=== PATIENT | female | born 1970 | race Hispanic/Latino ===

== ENCOUNTER 2025-08-31 12:58 | Emergency (ER) | payer BC ==
[~2025-08-31 12:58] MED LIST: Iopamidol 370 76% 100 ML VIAL ONE
[2025-08-31] MEDS ORDERED: Ketorolac Tromethamine 30 MG (1 mL) VIAL ONE (13:27)
[2025-08-31] MEDS ORDERED: Ondansetron PF 4 MG/2 ML Vial ONE (13:27)
[2025-08-31] MEDS ORDERED: HYDROmorphone 0.5 MG/0.5 ML SYRINGE ONE (13:28)
[2025-08-31 13:38] LABS: Hematocrit 45.0 % (36.0-47.0); Hemoglobin 14.5 g/dL (12.0-16.0); Mean Corpuscular Hemoglobin 28.2 pg (27.0-31.0); Mean Corpuscular Volume 87.4 fl (78.0-98.0); Platelet Count 234 10x3/uL (130-400); Red Blood Cell (RBC) Count 5.14 mill/uL (4.20-5.40); White Blood Cell (WBC) Count 17.6 10x3/uL (4.8-10.8)
[2025-08-31 13:45] LABS: MDiff Complete? YES; Manual Diff?? YES; Platelet Adequacy Comment Appears Adequate
[2025-08-31 13:47] LABS: ALT (SGPT) 265 U/L (Less than 34); AST (SGOT) 342 U/L (11-34); Albumin 4.2 g/dL (3.1-4.5); Alkaline Phosphatase 397 U/L (40-110); Anion Gap 19 mmol/L (10-20); BUN (Urea Nitrogen) 15 mg/dL (9.8-20.1); Bilirubin, Total 3.1 mg/dL (0.3-1.2); Calc. Creatinine Clearance 0 mL/min (70-130); Calcium 9.6 mg/dL (7.8-10.44); Carbon Dioxide 20 mmol/L (22-29); Chloride 104 mmol/L (98-107); Globulin 4.0 g/dL (2.4-3.5); Glucose 190 mg/dL (70-105); Lipase 12 U/L (8-78); Potassium 3.9 mmol/L (3.5-5.1); Sodium 139 mmol/L (136-145)
[2025-08-31 15:05] LABS: Glucose, Urine (Dipstick) 500 mg/dL (Negative); Leukocyte Small (Negative); Protein, Urine (Dipstick) Negative (Neg-Trace); Specific Gravity, Urine 1.020 (1.005-1.030)
[2025-08-31 15:16] LABS: Bacteria/HPF 2+ HPF (None Seen); CAUTI Indications for Culture Pelvic or flank pain; Urine Culture Reflex No No
== END 2025-08-31 16:51 | disposition short-term general hospital (02) ==
LOC: MADERS 12:58
DX: K80.50 Calculus of bile duct without cholangitis or cholecystitis without obstruction (principal); I10 Essential (primary) hypertension
CPT/HCPCS: 74177; 80053; 81001; 83690; 85025; 93005; 96365; 96375; J1171; J1885; J2405; J2543; J7030; Q9967